=== PATIENT | male | born 1950 | race Caucasian/White ===

== ENCOUNTER → 2016-12-04 | Outpatient (CLI) | payer MEDICARE, BC ==
[~2016-12-04] VITALS: Ht 185.4 cm; Wt 64.1 kg
[~2016-12-04] MED LIST: ALEVE220 MG PO; LEVAQUIN 5500 MG/TA1 PO; MUCINEX D ER T1 EACH; PREDNISONE10 MG PO; RT SPIRIVA INH18 MCG IH; SINGULAIR10 MG PO; SPIRIVA18 MCG IH; ZITHROMAX Z PA250 MG PO
[2016-12-04 10:01] VITALS: BP 110/76
== END ==
LOC: AMSURD 09:41
DX: E78.2 Mixed hyperlipidemia (principal); Z12.5 Encounter for screening for malignant neoplasm of prostate; J43.1 Panlobular emphysema; Z12.11 Encounter for screening for malignant neoplasm of colon

== ENCOUNTER → 2018-07-05 | Outpatient (CLI) | payer MEDICARE, BC ==
[~2018-07-05] VITALS: Ht 185.4 cm; Wt 64.1 kg
[2018-07-05 10:40] VITALS: BP 126/86
== END ==
LOC: AMSURD 09:56
DX: M54.9 Dorsalgia, unspecified (principal)

== ENCOUNTER 2018-07-14 09:00 | Outpatient (RCR) | payer MEDICARE, BC ==
[2016-12-04 10:01] VITALS: BP 110/76
== END 2018-07-21 | disposition home or self-care (01) ==
LOC: PT
DX: M75.42 Impingement syndrome of left shoulder (principal); M75.52 Bursitis of left shoulder
CPT/HCPCS: G0283-GP; G8985-GP

== ENCOUNTER → 2018-07-19 | Outpatient (CLI) | payer MEDICARE, BC ==
[2018-07-05 10:40] VITALS: BP 126/86
[2018-07-19 10:24] LABS: CALCIUM 9.4 mg/dL (8.4-10.2); EOS # 0.1 (0.04-0.40); EOS % 1.9 % (0.0-4.0); HEMATOCRIT 47.5 % (42.0-52.0); HEMOGLOBIN 15.6 g/dL (13.5-18.0); LYMPH# 1.5 (1.50-4.00); MEAN CELL VOLUME 97 fl (78-100); MEAN CORPUSCULAR HEMOGLOBIN 32 pg (27-31); MEAN CORPUSCULAR HGB CONC 33 g/dL (33-37); MEAN PLATELET VOLUME 9.5 fl (7.4-10.4); MONO # 0.7 (0.20-0.80); PLATELET COUNT 229 K/mm3 (130-400); POTASSIUM 4.8 mmol/L (3.6-5.0); RED BLOOD COUNT 4.91 M/mm3 (4.20-5.60); RED CELL DISTRIBUTION WIDTH 14.2 % (11.5-14.5); TOTAL BILIRUBIN 0.5 mg/dL (0.2-1.3); TOTAL PROTEIN 6.7 g/dL (6.3-8.2); WHITE BLOOD COUNT 6.4 K/mm3 (4.8-10.8)
[2018-07-19 11:43] LABS: ERYTHROCYTE SEDIMENTATION RATE 17 mm/hr (0-20)
== END ==
LOC: LAB 09:32
PROVIDERS: Internal Medicine
DX: Z12.5 Encounter for screening for malignant neoplasm of prostate (principal); Z12.11 Encounter for screening for malignant neoplasm of colon; J43.1 Panlobular emphysema; G62.9 Polyneuropathy, unspecified; E78.5 Hyperlipidemia, unspecified

== ENCOUNTER → 2020-02-14 | Outpatient (CLI) | payer MEDICARE, BC ==
[2018-07-05 10:40] VITALS: BP 126/86
== END ==
LOC: RAD 09:46
DX: M51.17 Intervertebral disc disorders with radiculopathy, lumbosacral region (principal)

== ENCOUNTER → 2020-02-21 | Outpatient (CLI) | payer MEDICARE, BC ==
[2018-07-05 10:40] VITALS: BP 126/86
== END ==
LOC: RAD 07:43
DX: M48.061 Spinal stenosis, lumbar region without neurogenic claudication (principal); M51.16 Intervertebral disc disorders with radiculopathy, lumbar region; M47.26 Other spondylosis with radiculopathy, lumbar region

== ENCOUNTER 2020-04-03 08:30 | Outpatient (RCR) | payer MEDICARE, BC ==
[2018-07-05 10:40] VITALS: BP 126/86
== END 2020-04-16 | disposition home or self-care (01) ==
LOC: PT
DX: M54.16 Radiculopathy, lumbar region (principal)

== ENCOUNTER 2020-04-17 08:27 | Outpatient (RCR) | payer MEDICARE, BC ==
[2018-07-05 10:40] VITALS: BP 126/86
== END 2020-07-16 | disposition home or self-care (01) ==
LOC: PT
DX: M54.16 Radiculopathy, lumbar region (principal)

== ENCOUNTER → 2020-12-31 | Outpatient (CLI) | payer MEDICARE, BC | LOC: LAB 16:13 | DX: R05 Cough (principal); Z20.822 Contact with and (suspected) exposure to COVID-19 ==

== ENCOUNTER → 2021-01-23 | Outpatient (CLI) | payer MEDICARE, BC ==
[2021-01-23 09:41] LABS: BASO # 0.04 K/mm3 (0.02-0.10); EOS % 1.6 % (0.0-4.0); HEMATOCRIT 50.7 % (42.0-52.0); HEMOGLOBIN 16.5 g/dL (13.5-18.0); LYMPH# 1.13 K/mm3 (1.50-4.00); MEAN CELL VOLUME 99 fl (78-100); MEAN CORPUSCULAR HEMOGLOBIN 32 pg (27-31); MEAN CORPUSCULAR HGB CONC 33 g/dL (33-37); MONO # 0.64 K/mm3 (0.20-0.80); NEU # 4.39 K/mm3 (1.40-6.50); PLATELET COUNT 237 K/mm3 (130-400); RED CELL DISTRIBUTION WIDTH 13.3 % (11.5-14.5); WHITE BLOOD COUNT 6.3 K/mm3 (4.8-10.8)
[2021-01-23 09:57] LABS: ALBUMIN 3.9 g/dL (3.4-4.8); POTASSIUM 4.8 mmol/L (3.5-5.1)
[2021-01-23 09:58] LABS: CALCIUM 9.9 mg/dL (8.3-10.5)
[2021-01-23 09:59] LABS: TOTAL PROTEIN 6.6 g/dL (6.2-8.1)
[2021-01-23 10:01] LABS: TOTAL BILIRUBIN 0.6 mg/dL (0.2-1.2)
[2021-01-23 10:09] LABS: D-DIMER 0.66 mg/L FEU (0.15-0.50)
[2021-01-23 10:44] LABS: ERYTHROCYTE SEDIMENTATION RATE 18 mm/hr (0-20)
== END ==
LOC: LAB 09:19
PROVIDERS: Internal Medicine
DX: R06.02 Shortness of breath (principal); R91.1 Solitary pulmonary nodule; R91.8 Other nonspecific abnormal finding of lung field
CPT/HCPCS: Q9967

== ENCOUNTER → 2021-10-10 | Outpatient (CLI) | payer MEDICARE, BC | LOC: RAD 12:33 | DX: R93.89 Abnormal findings on diagnostic imaging of other specified body structures (principal) ==

== ENCOUNTER → 2022-07-11 | Outpatient (CLI) | payer MEDICARE, BC ==
[2022-07-11 10:10] LABS: BASO # 0.03 K/mm3 (0.02-0.10); EOS # 0.12 K/mm3 (0.04-0.40); EOS % 1.5 % (0.0-4.0); HEMATOCRIT 49.6 % (42.0-52.0); HEMOGLOBIN 16.5 g/dL (13.5-18.0); LYMPH# 1.17 K/mm3 (1.50-4.00); MEAN CELL VOLUME 98 fl (78-100); MEAN CORPUSCULAR HEMOGLOBIN 33 pg (27-31); MEAN CORPUSCULAR HGB CONC 33 g/dL (33-37); MEAN PLATELET VOLUME 9.1 fl (7.4-10.4); MONO # 0.79 K/mm3 (0.20-0.80); NEU # 5.76 K/mm3 (1.40-6.50); PLATELET COUNT 221 K/mm3 (130-400); RED BLOOD COUNT 5.06 M/mm3 (4.20-5.60); RED CELL DISTRIBUTION WIDTH 13.4 % (11.5-14.5); WHITE BLOOD COUNT 7.9 K/mm3 (4.8-10.8)
[2022-07-11 10:16] LABS: POTASSIUM 4.8 mmol/L (3.5-5.1)
[2022-07-11 10:17] LABS: ALBUMIN 4.2 g/dL (3.4-4.8)
[2022-07-11 10:18] LABS: CALCIUM 9.5 mg/dL (8.3-10.5)
[2022-07-11 10:19] LABS: TOTAL PROTEIN 6.6 g/dL (6.2-8.1)
[2022-07-11 10:21] LABS: TOTAL BILIRUBIN 0.5 mg/dL (0.2-1.2)
[2022-07-11 10:26] LABS: MAGNESIUM 2.13 mg/dL (1.60-2.60)
[2022-07-11 13:10] LABS: ERYTHROCYTE SEDIMENTATION RATE 2 mm/hr (0-20)
== END ==
LOC: LAB 09:49
PROVIDERS: Internal Medicine
DX: Z12.5 Encounter for screening for malignant neoplasm of prostate (principal); Z12.11 Encounter for screening for malignant neoplasm of colon; E78.2 Mixed hyperlipidemia; K90.9 Intestinal malabsorption, unspecified; G62.9 Polyneuropathy, unspecified; J43.9 Emphysema, unspecified

== ENCOUNTER → 2023-08-07 | Outpatient (CLI) | payer MEDICARE, BC | LOC: RAD 09:22 | DX: I77.810 Thoracic aortic ectasia (principal); J43.9 Emphysema, unspecified ==

== ENCOUNTER → 2023-09-28 | Day surgery (SDC) | payer MEDICARE, BC ==
[~2023-09-28] MED LIST changes: +Lidocaine PF 2% (20 MG/ML) 2 ML VIAL ONE; +fentaNYL 100 MCG/2 ML VIAL ONE
== END ==
LOC: MSO 07:59
DX: K64.4 Residual hemorrhoidal skin tags (principal); A63.0 Anogenital (venereal) warts; L72.0 Epidermal cyst; F17.210 Nicotine dependence, cigarettes, uncomplicated
CPT/HCPCS: 00902; J2704; J3010; J7120

== ENCOUNTER → 2024-03-21 | Outpatient (CLI) | payer MEDICARE, BC ==
[~2024-03-21] MED LIST changes: -Lidocaine PF 2% (20 MG/ML) 2 ML VIAL ONE; -fentaNYL 100 MCG/2 ML VIAL ONE
[2024-03-21 11:05] LABS: BASO # 0.03 K/mm3 (0.02-0.10); EOS # 0.06 K/mm3 (0.04-0.40); EOS % 0.6 % (0.0-4.0); HEMATOCRIT 48.1 % (42.0-52.0); HEMOGLOBIN 16.1 g/dL (13.5-18.0); LYMPH# 1.16 K/mm3 (1.50-4.00); MEAN CELL VOLUME 97 fl (78-100); MEAN CORPUSCULAR HEMOGLOBIN 33 pg (27-31); MEAN CORPUSCULAR HGB CONC 34 g/dL (33-37); MEAN PLATELET VOLUME 8.8 fl (7.4-10.4); MONO # 1.03 K/mm3 (0.20-0.80); NEU # 7.29 K/mm3 (1.40-6.50); PLATELET COUNT 292 K/mm3 (130-400); RED BLOOD COUNT 4.96 M/mm3 (4.20-5.60); RED CELL DISTRIBUTION WIDTH 13.1 % (11.5-14.5); WHITE BLOOD COUNT 9.6 K/mm3 (4.8-10.8)
[2024-03-21 11:11] LABS: CALCIUM 9.7 mg/dL (8.3-10.5)
[2024-03-21 11:30] LABS: D-DIMER 0.51 mg/L FEU (0.15-0.50)
== END ==
LOC: LAB 10:47
PROVIDERS: Nurse Practitioner Family
DX: R06.00 Dyspnea, unspecified (principal)

== ENCOUNTER → 2024-07-28 | Outpatient (CLI) | payer MEDICARE, BC ==
[2024-07-28 09:26] LABS: BASO # 0.02 K/mm3 (0.02-0.10); EOS # 0.09 K/mm3 (0.04-0.40); EOS % 1.4 % (0.0-4.0); HEMATOCRIT 49.6 % (42.0-52.0); HEMOGLOBIN 16.4 g/dL (13.5-18.0); MEAN CELL VOLUME 97 fl (78-100); MEAN CORPUSCULAR HEMOGLOBIN 32 pg (27-31); MEAN CORPUSCULAR HGB CONC 33 g/dL (33-37); MONO # 0.74 K/mm3 (0.20-0.80); NEU # 4.17 K/mm3 (1.40-6.50); PLATELET COUNT 228 K/mm3 (130-400); RED BLOOD COUNT 5.09 M/mm3 (4.20-5.60); RED CELL DISTRIBUTION WIDTH 13.5 % (11.5-14.5); WHITE BLOOD COUNT 6.2 K/mm3 (4.8-10.8)
[2024-07-28 09:43] LABS: ALBUMIN 4.1 g/dL (3.4-4.8)
[2024-07-28 09:44] LABS: CALCIUM 8.8 mg/dL (8.3-10.5)
[2024-07-28 09:45] LABS: TOTAL PROTEIN 6.7 g/dL (6.2-8.1)
[2024-07-28 09:47] LABS: TOTAL BILIRUBIN 0.4 mg/dL (0.2-1.2)
[2024-07-28 09:52] LABS: MAGNESIUM 2.03 mg/dL (1.60-2.60)
== END ==
LOC: LAB 09:11
PROVIDERS: Internal Medicine
DX: Z12.5 Encounter for screening for malignant neoplasm of prostate (principal); Z12.11 Encounter for screening for malignant neoplasm of colon; J44.9 Chronic obstructive pulmonary disease, unspecified; E78.2 Mixed hyperlipidemia; G62.9 Polyneuropathy, unspecified; F52.21 Male erectile disorder